=== PATIENT | female | born 1945 | race Caucasian/White ===

== ENCOUNTER 2021-11-02 09:04 | Emergency (ER) | payer OTHER ==
[~2021-11-02 09:04] MED LIST: ACETAMINOPHEN500 M1 PO; AMARYL2 MG PO; ASPIRIN325 MG PO; FLECAINIDE ACET50 MG PO; GABAPENTIN100 MG PO; JANUVIA50 MG PO; LASIX20 MG PO; LUTEIN 15 MG S1 EACH PO; MEGA RED PO; NITROSTAT0.4 MG PO; NORCO 5/3251 EACH PO; NORVASC5 MG PO; OXYCODONE-ACET1 EAC1 PO; PERCOCET 5-3251 EACH PO; PHENERGAN25 M1 PO; PRESERVISION L1 EACH PO; PRILOSEC20 MG PO; SENNA S TABLET1 EACH PO; TOPROL XL 50 MG50 MG PO; TRAMADOL HCL50 MG PO; VIVIX PO; XARELTO10 MG PO; ZANAFLEX4 M1 PO; ZOFRAN ODT4 MG SL
[2021-11-02 10:14] LABS: BASOPHIL 0.7 % (0-2); EOSINOPHIL 3.8 % (0-7); HCT 38.5 % (37.0-47.0); HGB 12.2 g/dl (12.5-16.0); LYMPHOCYTE 33.6 % (15-48); MCH 31.4 pg (25.0-31.0); MCHC 31.7 g/dL (32.0-36.0); MONOCYTE 11.8 % (0-12); MPV 10.1 fL (6.0-9.5); NEUTROPHIL 49.7 % (41-80); NRBC 0; PLT 220 K/uL (150-400); RBC 3.89 M/uL (4.20-5.40); RDW 13.2 % (11.5-14.0); WBC 8.5 K/uL (4.0-10.5)
[2021-11-02 10:16] LABS: INR 1.01 (0.9-1.2)
[2021-11-02 10:17] LABS: PTT 28.1 SECONDS (24.9-34.6)
[2021-11-02 10:35] LABS: ALBUMIN 3.7 g/dL (3.4-5.0); BILIRUBIN - TOTAL 0.6 mg/dL (0.2-1.0); BUN/CREAT RATIO (CALC) 24.6 RATIO; CREATININE 1.38 mg/dL (0.51-0.95); GLOBULIN (CALCULATION) 3.6 g/dL; MAGNESIUM 2.2 mg/dL (1.8-2.4); POTASSIUM 4.5 mmol/L (3.5-5.1); TOTAL PROTEIN 7.3 g/dL (6.4-8.2)
[2021-11-02 12:35] LABS: BILIRUBIN NEGATIVE (NEGATIVE); BLOOD NEGATIVE Ery/uL (NEGATIVE); CLARITY CLEAR (CLEAR); COLOR YELLOW (YELLOW); GLUCOSE (U) NORMAL (NORMAL); LEUKOCYTES NEGATIVE Leu/uL (NEGATIVE); NITRITE NEGATIVE (NEGATIVE); PROTEIN NEGATIVE (NEGATIVE); SPECIFIC GRAVITY 1.015 (1.001-1.030); UROBILINOGEN 0.2 mg/dL (0.2-1.0)
== END 2021-11-02 13:15 | disposition other institution (70) ==
LOC: FER 09:04
PROVIDERS: Emergency Medicine
DX: I44.1 Atrioventricular block, second degree (principal); R42 Dizziness and giddiness; E11.22 Type 2 diabetes mellitus with diabetic chronic kidney disease; I12.9 Hypertensive chronic kidney disease with stage 1 through stage 4 chronic kidney disease, or unspecified chronic kidney disease; N18.30 Chronic kidney disease, stage 3 unspecified; Z88.4 Allergy status to anesthetic agent
CPT/HCPCS: 36415; 71045; 71250; 80053; 81003; 83735; 83880; 84443; 84484; 85025; 85610; 85730; 93005